=== PATIENT | male | born 1960 | race Caucasian/White ===

== ENCOUNTER 2018-07-30 09:10 | Emergency (ER) | payer SELFPAY ==
[~2018-07-30] VITALS: Ht 175.3 cm; Wt 100.0 kg
[2018-07-30 09:10] VITALS: Ht 175.3 cm; Wt 100.0 kg
[~2018-07-30 09:10] MED LIST: AMIODARONE 150 MG INJ ONE; ATROPINE 1 MG/10 ML SYRINGE ONE; BIVALIRUDIN 250 MG/50 ML NS BAG IVPB ONE; CANGRELOR 50MG / NS 250 BAG ONE; DOPamine-D5W 1.6 MG/ML 250 ML ONE; EPINEPHrine 0.1 MG/ML SYG ONE; NA BICARBONATE 8.4% 50 ML SYG ONE
[2018-07-30 09:17] VITALS: BP 113/75; PULSE 56
[2018-07-30] MEDS ORDERED: HEPARIN 1000 UNITS/ML 10 ML INJ IV STA (09:22)
[2018-07-30] MEDS ORDERED: ASPIRIN 300 MG SUPP PR ONE (09:30)
[2018-07-30 09:58] VITALS: RESP 25
[2018-07-30] MEDS ORDERED: AMIODARONE 900 MG in DEXTROSE 5% 482 ML IV SCH (10:00)
[2018-07-30] MEDS ORDERED: EPINEPHRINE 4 MG in D5W 250 ML IV ONE (10:30)
--- NOTE | 2018-07-30 10:51 | ERD ---
ER Documentation Chief Complaint Chief Complaint BIB RA 89 FULL ARREST. RESUSCITATION EFFORTS IN PROGRESS HPI Patient is a 57-year-old male with a history of hypertension who presents as a cardiac arrest in the field. The patient was supposedly complaining about upper abdominal pain since yesterday and went to work today. His coworker said that he did not look well and he went to the bathroom and then was found unconscious in the bathroom. He was found to be in cardiac arrest by paramedics and was in ventricular fibrillation. He was shocked 6 times and given 5 doses of epinephrine. He was given 300 mg of amiodarone as well. Please note the history and physical exam is limited as the patient is in full cardiac arrest. I cannot obtain history otherwise. ROS All systems reviewed and are negative except as per history of present illness. Medications Home Meds Unable to Obtain Active Prescriptions or Reported Meds Allergies Allergies: Coded Allergies: Unknown: Unable to obtain (Unverified , 07/30/18) PMhx/Soc Positive for hypertension Medical and Surgical Hx: Unable to obtain Smoking Status: Unknown if ever smoked FmHx Unable to obtain Physical Exam Vitals Vital Signs Date Temp Pulse Resp B/P (MAP) Pulse Ox O2 O2 Flow FiO2 Time Delivery Rate 07/30/18 85 25 87 100 09:58 07/30/18 56 16 113/75 97 Ambu Bag 09:17 (88) Physical Exam Const: In full cardiac arrest and being bagged by respiratory therapy Head: Atraumatic Eyes: Pupils fixed ENT: Normal External Ears, Nose and Mouth. Neck: Full range of motion. No meningismus. Resp: Clear to auscultation bilaterally Cardio: Patient receiving high-quality CPR Abd: Distended abdomen Skin: Pale and diaphoretic Back: No midline or flank tenderness Ext: No cyanosis, or edema Neur: GCS 3, in full cardiac arrest Result Diagram: 07/30/1892007/30/1821 Results 24 hrs Laboratory Tests Test 07/30/18 09:21 07/30/18 09:30 White Blood Count 6.7 10^3/ul Red Blood Count 4.57 10^6/ul Hemoglobin 13.7 g/dl Hematocrit 43.9 % Mean Corpuscular Volume 96.1 fl Mean Corpuscular Hemoglobin 30.0 pg Mean Corpuscular Hemoglobin Concent 31.2 g/dl Red Cell Distribution Width 12.0 % Platelet Count 129 10^3/UL Mean Platelet Volume 9.8 fl Immature Granulocytes % 9.600 % Neutrophils % % Segmented Neutrophils % (Manual) 7 % Band Neutrophils % (Manual) 1 % Lymphocytes % % Lymphocytes % (Manual) 79 % Reactive Lymphocytes % (Manual) 1 % Monocytes % % Monocytes % (Manual) 3 % Eosinophils % % Eosinophils % (Manual) 1 % Basophils % % Metamyelocytes % (manual) 6 % Myelocytes % (Manual) 2 % Nucleated Red Blood Cells % 1.0 /100WBC Immature Granulocytes # 0.640 10^3/ul Neutrophils # 10^3/ul Neutrophils # (Manual) 0.5 10^3/ul Band Neutrophils # 0.0 10^3/ul Lymphocytes (Manual) 5.2 10^3/ul Lymphocytes # 10^3/ul Reactive Lymphocytes # 0.0 10^3/ul Monocytes # 10^3/ul Monocytes # (Manual) 0.2 10^3/ul Eosinophils # 10^3/ul Basophils # 10^3/ul Metamyelocytes # 0.4 10^3/ul Myelocytes # 0.1 10^3/ul Nucleated Red Blood Cells # 10^3/ul Platelet Estimate DECREASED Giant Platelets 2 % Poikilocytosis 1+ Prothrombin Time 14.4 Sec Prothrombin Time Ratio 1.1 INR International Normalized Ratio 1.11 Activated Partial Thromboplast Time 45.6 Sec Sodium Level 139 mmol/L Potassium Level 3.1 mmol/L Chloride Level 99 mmol/L Carbon Dioxide Level 20 mmol/L Anion Gap 20 Blood Urea Nitrogen 12 mg/dl Creatinine 1.16 mg/dl Est Glomerular Filtrat Rate mL/min > 60 mL/min Glucose Level 332 mg/dl Calcium Level 10.0 mg/dl Total Bilirubin 0.1 mg/dl Direct Bilirubin 0.00 mg/dl Indirect Bilirubin 0.1 mg/dl Aspartate Amino Transf (AST/SGOT) 209 IU/L Alanine Aminotransferase (ALT/SGPT) 233 IU/L Alkaline Phosphatase 74 IU/L Troponin I 0.202 ng/ml Total Protein 6.1 g/dl Albumin 3.6 g/dl Globulin 2.50 g/dl Albumin/Globulin Ratio 1.44 Urine Color YELLOW Urine Clarity SLIGHTLY CLOUDY Urine pH 5.0 Urine Specific [place] 1.020 Urine Ketones NEGATIVE mg/dL Urine Nitrite NEGATIVE mg/dL Urine Bilirubin NEGATIVE mg/dL Urine Urobilinogen NEGATIVE mg/dL Urine Leukocyte Esterase NEGATIVE Amadou/ul Urine Microscopic RBC 21 /HPF Urine Microscopic WBC 4 /HPF Urine Mucus FEW /HPF Urine Hemoglobin 1+ mg/dL Urine Glucose NEGATIVE mg/dL Urine Total Protein 1+ mg/dl Current Medications Medications Dose Sig/Jose Start Time Status Last (Trade) Ordered Route PRN Stop Time Admin Dose Reason Admin Aspirin 300 mg ONCE ONCE 07/30/18 DC (Aspirin) CO 09:30 07/30/18 09:31 Heparin 5,000 unit ONCE STAT 07/30/18 DC Sodium IV 09:22 (Porcine) 07/30/18 09:23 (Heparin (1000 Units/ml)) Amiodarone 500 ml @ 0 Q0M IV 07/30/18 HCl 900 mls/hr 10:00 mg/Dextrose 07/31/18 09:59 Epinephrine 250 ml @ 0 ONCE ONCE 07/30/18 DC 4 mg/ mls/hr IV 10:30 Dextrose 07/30/18 10:31 Procedures/MDM Endotracheal Intubation by me: Pre assessment performed. Pre-oxygenation performed with 100% oxygen RSI: Performed w/o complication or hypoxic events. Medications as ordered. Blade: MAC 4 video laryngoscope ET Tube: 7.0 cm Depth: 25 cm at the lip Intubation confirmed by colorimetric CO2, equal breath sounds, quiet over the stomach. Chest X-ray 1V Interpreted by me: Soft Tissue: No acute abnormalities Bones: No acute abnormalities Mediastinum/Cardiac Silhouette/Lungs: No acute abnormalities ET tube past the clavicles intraosseous Line Placement by me: Patient in full cardiac arrest Anesthesia: None required Location: Anteromedial, Proximal Tibia (1-3 cm below Tibial tuberosity) Device: Yellow easy IO needle Technique: EZ-IO Drill Results: Bone Marrow Aspirated, No extravasation Complications: No evidence of extravasation, compartment syndrome, growth plate damage, or fat embolism EKG read by me: Rate/Rhythm: Regular rate and rhythm at a normal rate Intervals: Normal Impression: Wide QRS with anterior ST elevations across V2 through V6 consistent with patient is a STEMI 57-year-old male with hypertension who presents in full cardiac arrest. The patient received multiple doses of epinephrine, defibrillation, and amiodarone. I intubated the patient at the bedside upon arrival. A code STEMI was called after return of spontaneous circulation. Post return of spontaneous circulation EKG showed STEMI. I spoke with Dr. Mckeon who is covering for Dr. Guzman. He has come to the bedside and will take the patient directly to the cardiac Histotechnician. He recommended aspirin and heparin which have been ordered. Rowley catheter and OG tube were placed. The patient will be admitted to the intensive care unit to the panel team. Prognosis is guarded given the significant downtime and multiple shocks with cardiac arrest. Critical Care: Time: 45 minutes excluding all billable procedures. Treatments/Evaluations: Close monitoring and treatment of unstable vital signs, cardiorespiratory, and neurologic status, while maintaining tight balance of fluid, respiratory, and cardiac interventions. Departure Diagnosis: Primary Impression: STEMI (ST elevation myocardial infarction) Involved coronary artery: unspecified coronary artery Qualified Codes: I21.3 - ST elevation (STEMI) myocardial infarction of unspecified site Additional Impression: Cardiac arrest Condition: Critical DIANNA MONTANA MD Jul 30, 2018 10:51
[2018-07-30] MEDS ORDERED: TICAGRELOR 90 MG TABLET ONE (11:23)
[2018-07-30] MEDS ORDERED: VASOPRESSIN 60 UNIT in DEXTROSE 5% 60 ML IV ONE (11:30)
--- NOTE | 2018-07-30 11:55 | QN ---
Documentation Comment I was called out of the emergency department to the cardiac Biblical Studies Professor for a CODE BLUE event. The patient was receiving high-quality CPR and being bagged by respiratory therapy. I immediately took over as the CODE BLUE leader and ran the code. Please see the code sheet for full details. The patient received multiple doses of epinephrine and bicarbonate. The final results of the CODE BLUE was patient was pronounced at 11:45 AM. HPI: Please note the history and physical exam is limited as the patient is receiving CPR at this time. The patient is in full cardiac arrest. Physical exam: The patient is being bagged by respiratory therapy. There is no movement. GCS is 3. DIANNA MONTANA MD Jul 30, 2018 11:55
--- NOTE | 2018-07-30 12:08 | CONS ---
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 It is unclear how long he was down until paramedics arrived. In the field he was shocked 6 times for Vfib and ROSC was achieved after aboiut 30 minutes per report. En route he had PEA arrest and arrived in full arrest. He again had ROSC and EKG showed STEMI for which he was taken to the [facility]ophysical laboratory emergently. See full report but cath showed occluded OM which was successfully re vascularized but the pt had poor flow due to cardiogenic shock. An IABP was placed for support as well as a transvenous pacer. He stabilized enough to have revascularization of his LAD as well. He did well for about 30 minutes after as he was being prepared to go to the ICU. He unfortunately had PEA arrest again and despite multiple rounds of epi and bicarb, he was pronounced 11:45 am. Family was notified and condolences were offered. Past Medical History Home Meds Unable to Obtain Active Prescriptions or Reported Meds Medications Current Medications Amiodarone HCl 900 mg/Dextrose 500 ml @ 0 mls/hr Q0M IV ; Start 07/30/18 at 10:00; Stop 07/31/18 at 09:59 Allergies: Coded Allergies: Unknown: Unable to obtain (Unverified , 07/30/18) Social History Smoking Status: Unknown if ever smoked Exam/Review of Systems Exam Vitals Vital Signs Date Temp Pulse Resp B/P (MAP) Pulse Ox O2 O2 Flow FiO2 Time Delivery Rate 07/30/18 85 25 87 100 09:58 07/30/18 113/75 Ambu Bag 09:17 (88) Exam at time of note,pt is . Results Result Diagram: 07/30/1892007/30/1821 Results 24hrs Laboratory Tests Test 07/30/18 09:21 07/30/18 09:30 White Blood Count 6.7 Red Blood Count 4.57 L Hemoglobin 13.7 L Hematocrit 43.9 Mean Corpuscular Volume 96.1 Mean Corpuscular Hemoglobin 30.0 Mean Corpuscular Hemoglobin Concent 31.2 L Red Cell Distribution Width 12.0 Platelet Count 129 L Mean Platelet Volume 9.8 Immature Granulocytes % 9.600 H Neutrophils % Segmented Neutrophils % (Manual) 7 L Band Neutrophils % (Manual) 1 Lymphocytes % Lymphocytes % (Manual) 79 H Reactive Lymphocytes % (Manual) 1 H Monocytes % Monocytes % (Manual) 3 Eosinophils % Eosinophils % (Manual) 1 Basophils % Metamyelocytes % (manual) 6 H Myelocytes % (Manual) 2 H Nucleated Red Blood Cells % 1.0 H Immature Granulocytes # 0.640 H Neutrophils # Neutrophils # (Manual) 0.5 L Band Neutrophils # 0.0 Lymphocytes (Manual) 5.2 H Lymphocytes # Reactive Lymphocytes # 0.0 Monocytes # Monocytes # (Manual) 0.2 L Eosinophils # Basophils # Metamyelocytes # 0.4 H Myelocytes # 0.1 H Nucleated Red Blood Cells # Platelet Estimate DECREASED Giant Platelets 2 H Poikilocytosis 1+ Prothrombin Time 14.4 Prothrombin Time Ratio 1.1 INR International Normalized Ratio 1.11 Activated Partial Thromboplast Time 45.6 H Sodium Level 139 Potassium Level 3.1 L Chloride Level 99 Carbon Dioxide Level 20 L Anion Gap 20 H Blood Urea Nitrogen 12 Creatinine 1.16 Est Glomerular Filtrat Rate mL/min > 60 Glucose Level 332 H Calcium Level 10.0 Total Bilirubin 0.1 L Direct Bilirubin 0.00 Indirect Bilirubin 0.1 Aspartate Amino Transf (AST/SGOT) 209 H Alanine Aminotransferase (ALT/SGPT) 233 H Alkaline Phosphatase 74 Troponin I 0.202 *H Total Protein 6.1 Albumin 3.6 Globulin 2.50 Albumin/Globulin Ratio 1.44 Urine Color YELLOW Urine Clarity SLIGHTLY CLOUDY A Urine pH 5.0 Urine Specific [place] 1.020 Urine Ketones NEGATIVE Urine Nitrite NEGATIVE Urine Bilirubin NEGATIVE Urine Urobilinogen NEGATIVE Urine Leukocyte Esterase NEGATIVE Urine Microscopic RBC 21 H Urine Microscopic WBC 4 Urine Mucus FEW A Urine Hemoglobin 1+ H Urine Glucose NEGATIVE Urine Total Protein 1+ H Medications Medication Current Medications Amiodarone HCl 900 mg/Dextrose 500 ml @ 0 mls/hr Q0M IV ; Start 07/30/18 at 10:00; Stop 07/31/18 at 09:59 TALHA PENNY Jul 30, 2018 12:08
--- NOTE | 2018-07-30 12:28 | OPR ---
Date/Time of Note Date/Time of Note DATE: 07/30/18 TIME: 12:08 Operative Report Procedure Date: Jul 30, 2018 Preoperative Diagnosis STEMI, cardiac arrest Postoperative Diagnosis same, s/p PCI, IABP, TVP. Cardiac arrest Operation/Procedure Performed see details Surgeon see signature line Grounds Maintenance Supervisor none Anesthesia Type: moderate sedation Estimated Blood Loss: minimal Transfusion none Specimen none Grafts/Implants none Complications none Procedure Description Procedure Date: 07/30/18 Topographical Engineer/surgeon: Kehinde Mckeon MD. Procedures Performed: 1)Left heart catheterization with selective left and right coronary angiography. 2)Balloon angioplasty and stenting of the mid Cx to mid OM with Synergy 2.75 x 16 x 2 overlapping stents 3)Left femoral vein Transvenous pacemaker 4)IABP placement 5)Balloon angioplasty and stenting of the prox LAD with Synergy 2.5 x 16 stent 6)Right femoral vein central venous catheter 7)Code blue, cardiac arrest resuscitation. Pre-operative Diagnosis:cardiac arrest, STEMI Post-operative Diagnosis:same s/p procedures listed above Indications:57 yo M who had cardiac arrest at his workplace. He had VF on the scene s/p multiple defibrillations and ROSC. Had PEA arrest prior to arrival and again ROSC. EKG showed STEMI Description of Procedure: The procedure site was prepped and draped in usual manner. A 6 martiniquais right femoral artery sheath was placed. A 5 martiniquais left femoral venous sheath was placed. Next using theEBU 3.5 guide and JR4 diagnostic, selective angiography of the left and right coronary arteries were obtained. The decision was made to proceed with PCI of the culprit OM. After appropriate anticoagulation and antiplatelets (cangrelor) were given, the BMW wire was placed in the Cx and in the OM. Next the 2.5 X 12 balloon was used to dilate the lesion with MARIXA 2-3 flow. Subsequently, the Synergy 2.75 x 16 stent was advanced to the lesion and deployed at 12 chaz. A second Synergy 2.75 x 16 stent was placed extending into the prox Cx. At this point there was MARIXA 2 flow in all vessels due to cardiogenic shock. He began to have episodes of bradycardia and he had a transvenous pacer placed through the existing left femoral venous sheath with good capture. He had brief CPR at this time. Next left femoral artery access was obtained and an intraaortic balloon pump was placed. This stabilized his pressure but he was requiring support with levophed, dopamine, and epinephrine drips at max doses. He was on integrilin but due to endotracheal bleeding, this was stopped. Next due to his cardiogenic shock and in an attempt to provide him with as much revascularization as possible, the decision was made to intervene on the prox LAD as well. A BMW was used to cross the lesion which was dilated with a 2.0 x 12 balloon and subsequently a Synergy 2.5 x 16 stent was placed and post dilated with a 2.75 x 8 balloon. At the end of the case he had improved flow close to MARIXA 3 though certainly not brisk flow. His status was very tenuous. His family was notified that he was critically ill but still alive. After about 20-30 minutes as his sheaths were being sutured and the pt cleaned for transfer, he had PEA arrest again. He was again coded for >20 minutes and multiple rounds of epi and bicarb were given. Unfortunately ROSC was not achieved and the pt was pronounced at 11:45. Findings: Anatomy/Hemodynamics: Left main:luminal irregularities LAD: prox 90-95% Diagonal:small diffusely diseased Circumflex: dominant vessel with distal 100% thrombotic occlusion which recannalized spontaneously Obtuse marginal: culprit vessel with mid 100% thrombotic occlusion with contrast staining RCA:nondominant with tandem prox 80% LV angiography:not done Contrast used:220 mL Fluoroscopy time:16.2 min Medications used: Angiomax Cangrelor Integrilin Equipment used: 6 martiniquais EBU 3.5 guide BMW angioplasty wire 2 x 12 and 2.5 x 12 balloon Synergy 2.75 x 16 drug eluting stent x 2 (Cx/OM) Synergy 2.5 x 16 stent (LAD) 2.75 x 12 noncompliant balloon Estimated blood loss<10 mL. Specimen: none Grafts/implants: none Complications: none Assessment: STEMI: s/p PCI of Cx/OM and LAD Cardiac arrest Cardiogenic shock -unfortunately the patient had PEA arrest and was pronounced . KEHINDE MCKEON Jul 30, 2018 12:28
== END 2018-07-30 14:44 | disposition expired ==
LOC: E/R 09:10 → CANBEDREQ 19:35
DX: I21.3 ST elevation (STEMI) myocardial infarction of unspecified site (principal); R40.2432 Glasgow coma scale score 3-8, at arrival to emergency department; R07.9 Chest pain, unspecified
CPT/HCPCS: 31500; 36415; 36680; 51702; 71045; 80053; 81001; 84484; 85025; 85610; 85730; 87086; 92928; 92950; 92953; 93005; 93454; 94002; 99291; C1725; C1726; C1751; C1874; C1887; C1894; C9460; C9606; J0171; J0282; J0461; J0583; J1265; J1644; J7060; J7070